=== PATIENT | male | born 1955 | race Caucasian/White ===

== ENCOUNTER → 2016-11-14 | Outpatient (CLI) | payer OTHER ==
[~2016-11-14] MED LIST: ALBUTEROL MININEB NEB; ASPIRIN EC81 M1 PO; BENZONATATE200 M1 PO; BP MED; BREO ELLIPTA 11 EACH INH; CIPRO PO; COMBIVENT MININEB INH; DELTASONE20 MG PO; DIGOX250 MCG PO; DILTIAZEM 24HR180 MG PO; ELIQUIS5 MG PO; HYDROCHLOROTH12.5 MG PO; INVOKANA100 MG PO; KEFLEX PO; LOSARTAN POTASS50 MG PO; MELOXICAM15 MG PO; METFORMIN PO; METOPROLOL SUCC25 MG PO; NO MEDICATIONS; OMNICEF300 MG PO; PREDNISONE PO; PROVENTIL0.83 MG/ML INH; PULMICORT0.5 MG/2 M INH; SYMBICORT INH; TUDORZA PRESS400 MCG IH; VIBRAMYCIN100 M1 DOB; ZESTRIL40 MG PO
--- NOTE | ~2016-11-14 | CR58 ---
[facility] A Service of [facility] RADIOLOGY TEXT RESULTS PATIENT: LUANN GALARZA LOCATION: [facility] : 57 UNIT #: [id number] AGE: [address]: MIKAELA LI SEX: M ORDER DR: [id number] [facility] [address] [place], [place] [address] [id number] O MR#: [id number] Acc #: [id number] NAME: LUANN GALARZA : 1955 SEX: M STUDY DATE/TIME: 11/14/2016 15:14 UNIT: [facility] ROOM: STUDY DESCRIPTION: CR Cervical Spine 2 or 3 Views Attending Physician: Jalil La Referring Physician: Jalil La Ordering Physician: Jalil La Primary Care Physician: Jalil La MEDICAL IMAGING REPORT This report is preliminary unless electronic signature is present EXAM Cervical spine series 5 views 11/14/2016 HISTORY Neck pain with bilateral arm numbness and tingling paresthesias for 1.5 months. FINDINGS There are cervical spinal degenerative changes including a slight C3-4 anterolisthesis but there is no fracture, prevertebral swelling, bone erosion or destruction or other acute finding. IMPRESSION Degenerative changes without acute abnormality. Dictated by... Fito John M.D. THIS IS AN ELECTRONICALLY VERIFIED REPORT Fito John M.D. at 11/16/2016 5:03 PM COMPA/leeanne TD: 11/15/2016 08:23 JOB #: [id number] MEDICAL IMAGING REPORT Page 1 of 1 COPY
== END | disposition home or self-care (01) ==
LOC: CRAD 14:43
DX: M54.2 Cervicalgia (principal); M47.812 Spondylosis without myelopathy or radiculopathy, cervical region
CPT/HCPCS: 72040